=== PATIENT | male | born 1945 | race Caucasian/White ===

== ENCOUNTER → 2020-09-01 | Outpatient (CLI) | payer MEDICARE ==
[~2020-09-01] MED LIST: ABX PO; AMIT100T PO; ATOR40TA78 PO; DILT120T3 PO; FAMO-79 PO; GLUC15006 PO; LEVO5TAB29 PO; TEMAZEPAM PO; TRAV5DRO EACHEYE; TRIA0.2576 PO; VIT1TABL34 PO
== END | disposition home or self-care (01) ==
LOC: STAR 13:00
PROVIDERS: ATTEND Orthopaedic Surgery Hand Surgery
DX: Z01.818 Encounter for other preprocedural examination (principal); M65.30 Trigger finger, unspecified finger; J18.9 Pneumonia, unspecified organism; I44.0 Atrioventricular block, first degree; I44.4 Left anterior fascicular block; Z20.822 Contact with and (suspected) exposure to COVID-19
CPT/HCPCS: 71046; 93005; U0003

== ENCOUNTER 2020-09-05 07:25 | Day surgery (SDC) | payer MEDICARE ==
[~2020-09-05] VITALS: Ht 180.3 cm; Wt 84.0 kg
[2020-09-05] MEDS ORDERED: FENTANYL PF 100 MCG/2ML ONE (07:56)
[2020-09-05] MEDS ORDERED: MIDAZOLAM 1 MG/ML, 2ML ONE (07:57)
[2020-09-05] MEDS ORDERED: LIDOCAINE-MPF 1%, 5ML ONE (08:03)
[2020-09-05] MEDS ORDERED: BUPIVACAINE/PF 0.5% ONE (08:03)
[2020-09-05] MEDS ORDERED: CHLORHEXIDINE 15 ML UDC ONE (08:10)
[2020-09-05] MEDS ORDERED: CEFAZOLIN 1,000 MG ONE (08:27)
[2020-09-05] MEDS ORDERED: FENTANYL PF 100 MCG/2ML IV PRN (08:30)
[2020-09-05] MEDS ORDERED: HYDROmorphone 1 MG/ML, 1ML INJ IVPush PRN (08:30)
[2020-09-05] MEDS ORDERED: OXYcodone 5 MG/5 ML ORAL.SOL UDC PO PRN (08:30)
[2020-09-05] MEDS ORDERED: CHLORHEXIDINE 15 ML UDC PO ONE (08:30)
[2020-09-05] MEDS ORDERED: PROMETHAZINE 25 MG/ML, 1ML IVPush PRN (08:30)
[2020-09-05] MEDS ORDERED: ONDANSETRON 2MG/ML, 2ML IVPush PRN (08:30)
[2020-09-05] MEDS ORDERED: hydrALAzine 20 MG/ML, 1ML IV PRN (08:30)
[2020-09-05] MEDS ORDERED: METHOCARBAMOL 1,000 MG in DEXTROSE 5% 100 ML IV PRN (08:30)
[2020-09-05] MEDS ORDERED: LACTATED RINGERS 1,000 ML IV SCH (08:30)
[2020-09-05] MEDS ORDERED: LABETALOL 5MG/ML, 20ML IV PRN (08:30)
[2020-09-05] MEDS ORDERED: EPHEDRINE 50 MG/ML, 1ML IVPush PRN (08:30)
[2020-09-05] MEDS ORDERED: ACETAMINOPHEN 325 MG TABLET PO PRN (08:30)
[2020-09-05] MEDS ORDERED: PROPOFOL 50 ML ONE (08:31)
[2020-09-05] MEDS ORDERED: ONDANSETRON 2MG/ML, 2ML ONE (08:35)
[2020-09-05] MEDS ORDERED: PHENYLEPHRINE 10 MG/ML ONE (08:35)
[2020-09-05] MEDS ORDERED: hydrALAzine 20 MG/ML, 1ML ONE (10:26)
== END 2020-09-05 11:05 | disposition home or self-care (01) ==
LOC: OUT 07:25
PROVIDERS: ATTEND Orthopaedic Surgery Hand Surgery
DX: M65.341 Trigger finger, right ring finger (principal); I10 Essential (primary) hypertension; Z91.011 Allergy to milk products; Z90.49 Acquired absence of other specified parts of digestive tract; Z98.890 Other specified postprocedural states; Z79.899 Other long term (current) drug therapy; Z72.89 Other problems related to lifestyle; Z87.891 Personal history of nicotine dependence
CPT/HCPCS: 26055; J0360; J0690; J2250; J2370; J2405; J2704; J3010; J7120